=== PATIENT | female | born 1945 | race Asian ===

== ENCOUNTER 2022-02-16 | Inpatient (IN) | payer OTHER, MEDICAID ==
[~2022-02-16] VITALS: Ht 152.4 cm; Wt 49.9 kg
[2022-02-16] VITALS (9 sets, daily range): BP systolic 108–159
--- NOTE | 2022-02-16 00:19 | NUR ---
Patient to ER bed 7 to gown for evaluation. Side rails up. Report given to Saulo MORALEZ.
--- NOTE | 2022-02-16 00:20 | NUR ---
PT BIB DAUGHTER WITH COMPLAINT OF ABDOMINAL PAIN FOR THE PAST DAY. PT HAD LAST BOWEL MOVEMENT THIS MORNING. PT DENIES ANY BLUNT INJURY. PT DENIES ANY BLOOD WITH BOWEL MOVEMENT. VS ARE WITHIN NORMAL LIMITS, PT IS IN BED WITH BED LOWERED LOCKED AND RAILS UP
[2022-02-16] MEDS ORDERED: ONDANSETRON HCL 4 MG/2 ML VIAL IVP ONE ×2 (00:45→03:45)
[2022-02-16] MEDS ORDERED: NACL 0.9% 1,000 ML IV ONE (00:45)
[2022-02-16] MEDS ORDERED: MORPHINE 4 MG INJ. 4 MG/ML VIAL IVP ONE ×2 (00:45→03:30)
[2022-02-16 01:47] LABS: HEMOGLOBIN 10.7 g/dL (12.0-16.0); MEAN CORPUSCULAR HEMOGLOBIN 32 pg (27-31); PLATELET COUNT (AUTO) 233 K/uL (130-430)
[2022-02-16 01:48] LABS: ANION GAP 8 (5-15); CALCIUM 8.7 mg/dL (8.4-11.0); CHLORIDE 94 mmol/L (98-107); CREATININE 0.58 mg/dL (0.55-1.30); GLUCOSE 120 mg/dL (70-99); POTASSIUM 3.6 mmol/L (3.5-5.1); SODIUM SERUM 128 mmol/L (136-145); UREA NITROGEN, BLOOD 12 mg/dL (8-21)
[2022-02-16 01:52] LABS: BASOPHILS % (AUTO) 0.2 % (0.0-2.0); EOSINOPHILS % (AUTO) 0.1 % (0.0-4.0); HEMATOCRIT 30.7 % (36-48); LYMPHOCYTES # (AUTO) 0.7 K/uL (1.0-5.5); LYMPHOCYTES % (AUTO) 6.2 % (20.5-51.5); MEAN CORPUSCULAR HGB CONC 35 % (32-36); MEAN CORPUSCULAR VOLUME 92 fL (79.0-98.0); MONOCYTES # (AUTO) 0.3 K/uL (0.0-1.0); MONOCYTES % (AUTO) 2.9 % (1.7-9.3); NEUTROPHILS # (AUTO) 9.9 K/uL (1.8-7.7); NEUTROPHILS % (AUTO) 90.6 % (40.0-70.0); RED BLOOD CELL COUNT(AUTO) 3.35 MIL/uL (4.2-6.2); RED CELL DISTRIBUTION WIDTH 12.8 % (9.0-15.0)
[2022-02-16 01:55] LABS: ALANINE AMINOTRANSFERASE 21 U/L (12-78); ALBUMIN 3.5 g/dL (3.4-4.8); ASPARTATE AMINOTRANSFERASE 22 U/L (10-37); LIPASE 135 U/L (73-393); TOTAL BILIRUBIN 0.7 mg/dL (0.0-1.0)
[2022-02-16] MEDS ORDERED: cefOXitin SODIUM 2 GM in D5W 100 ML IV ONE (02:15)
--- NOTE | 2022-02-16 02:21 | NUR ---
PT TAKES A DAILY ANTIHYPERTENSIVE MEDICATION BUT DOES NOT KNOW THE NAME
[2022-02-16] MEDS ORDERED: cefOXitin SODIUM 2 GM/VIAL (MEFOXIN) ONE ×2 (02:45→03:52)
[2022-02-16] MEDS ORDERED: MORPHINE 2 MG/ML INJ. SYRINGE IVP PRN (03:00)
[2022-02-16] MEDS ORDERED: cefOXitin SODIUM 1 GM in D5W 50 ML IV SCH (03:00)
[2022-02-16] MEDS ORDERED: ONDANSETRON HCL 4 MG/2 ML VIAL IVP PRN ×2 (03:00→12:15)
--- NOTE | 2022-02-16 03:04 | NUR ---
Patient will be admitted to care of DR. FRANCIS. Admitted to MED SURG unit FOR ACUTE APPENDICITIS.
--- NOTE | 2022-02-16 03:07 | NUR ---
Admit bed requested Patient will be admitted to care of . Admitted to MED SURG unit. Diagnosis ACUTE APPENDICITIS Inpatient (Yes or No) YES Observation (Yes or No) NO Orientation concerns or request close to nursing station (Yes or No) NO Covid Status NEGATIVE On vent or bipap N/A Isolation requirements N/A Needs a sitter N/A From Home (Yes or if No enter name of facility) YES Requires Dialysis (Yes or No) NO Med Rec Completed (Yes of No) YES
--- NOTE | 2022-02-16 04:59 | NUR ---
Patient will be admitted to care of DR FRANCIS. Admitted to unit. Will go to room . Belongings list completed. Complete and up to date summary report printed. SBAR report to GERARDO MORALEZ bedside with opportunity for questions.
--- NOTE | 2022-02-16 05:00 | NUR ---
ADMISSION NOTE Received patient from ER via gurney. Patient admitted with diagnosis of Appendecitis. Patient is awake, alert, oriented X 4. Patient oriented to hospital room, call light, toileting, pain management and safety-teach back done. Patient informed that Fernanda Mcdermott will be her night nurse and that their room number is [id number]. Personal belongings checked and Belongings List documented. Call light within reach. Pt is NPO at this time. Admission completed.
--- NOTE | 2022-02-16 05:30 | NUR ---
Unable to reconcile meds at this time. Daughter Ishaan and the patient does not know what the name of the medication she takes at home. Instructed the daughter to obtain med information and call us and or bring the list so when can inform MD for med to be reconciled.
[2022-02-16] MEDS: KCL 20 mEq in D5/0.45NS 1000mL 1,000 ML IV SCH ×2 (06:20→15:30)
[2022-02-16] MEDS: PANTOPRAZOLE SODIUM 40 MG/VIAL (PROTONIX) IVP SCH (08:27)
[2022-02-16] MEDS ORDERED: BUPIVACAINE LIPOSOME/PF 266 MG/20 ML VIAL INFIL ONE (09:27)
[2022-02-16] MEDS ORDERED: PHENYLEPHRINE HCL 10 MG/ML VIAL (NEOSYNEPHRINE) ONE (10:18)
[2022-02-16] MEDS ORDERED: MIDAZOLAM HCL 2 MG/2 ML VIAL (VERSED) ONE (10:18)
[2022-02-16] MEDS ORDERED: DEXAMETHASONE SOD PHOSPHATE 4 MG/ML VIAL ONE (10:18)
[2022-02-16] MEDS ORDERED: PROPOFOL 200MG/ 20ML VIAL (DIPRIVAN) IV ONE (10:18)
[2022-02-16] MEDS ORDERED: NS 1000 ML IV.SOLN IV ONE (10:18)
[2022-02-16] MEDS ORDERED: ROCURONIUM BROMIDE 10 MG/ML (ZEMURON) ONE (10:18)
[2022-02-16] MEDS ORDERED: HYDROmorphone 2 MG/ML VIAL ONE (10:18)
[2022-02-16] MEDS ORDERED: SEVOFLURANE 15 MIN GAS INH ONE (10:18)
[2022-02-16] MEDS ORDERED: ONDANSETRON HCL 4 MG/2 ML VIAL ONE (10:18)
[2022-02-16] MEDS ORDERED: NS IRRIG SOLN 1000 ML IR ONE (10:18)
[2022-02-16] MEDS ORDERED: SUGAMMADEX SODIUM 200 MG/2 ML VIAL IV ONE (10:18)
--- NOTE | 2022-02-16 10:33 | NUR ---
PATIENT AOX4, APPROPRIATE MOOD, NONDISTRESS. CHILDREN AT BEDSIDE. PATIENT NPO SINCE MN WITH IVFLUIDS MAINTAINED AT ORDERED RATE. RIGHT HAND 20G PATENT. PATIENT LEFT UNIT VIA BED FOR SURGERY. CONSENT/ANESTHESIA DONE. VSS STABLE, AFEBRILE
[2022-02-16] MEDS: cefOXitin SODIUM 1 GM in D5W 50 ML IV SCH ×2 (10:45→17:05)
[2022-02-16] MEDS ORDERED: FLUMAZENIL 0.1 MG/ML IVP PRN (12:15)
[2022-02-16] MEDS ORDERED: MORPHINE 4 MG INJ. 4 MG/ML VIAL IVP PRN ×2 (12:15)
[2022-02-16] MEDS ORDERED: KETOROLAC TROMETHAMINE 30 MG VIAL IVP PRN (12:15)
[2022-02-16] MEDS ORDERED: METOCLOPRAMIDE HCL 10 MG/2 ML VIAL IVP PRN (12:15)
[2022-02-16 12:37] LABS: BILIRUBIN,URINE NEGATIVE (NEGATIVE); BLOOD, URINE NEGATIVE (NEGATIVE); CLARITY/URINE CLEAR (CLEAR); COLOR,URINE YELLOW (YELLOW); GLUCOSE,URINE NEGATIVE (NEGATIVE); KETONES,URINE NEGATIVE (NEGATIVE); LEUKOCYTE ESTERASE ,URINE NEGATIVE (NEGATIVE); NITRITE, URINE NEGATIVE (NEGATIVE); PROTEIN URINE NEGATIVE (NEGATIVE); UROBILINOGEN,URINE 0.2 (0.2-1.0)
--- NOTE | 2022-02-16 12:59 | NUR ---
PATIENT OFF UNIT FOR SURGICAL PROCEDURE. THANK YOU
--- NOTE | 2022-02-16 13:42 | NUR ---
PATIENT BACK FROM SURGERY S/P LAP CONSTANTINO. DENIES ANY PAIN, BEDREST, APPROPRIATE MOOD, NONDISTRESS. ON 2LNC SATS 100%. RIGHT HAND 22G WITH IV FLUIS. ABD WITH 3 SURGICAL DRESSINGS-DRESSING ON MID ABD WITH SMALL AMOUNT OF RED BLOOD. IS GIVEN TO PATIENT FOR LUNG EXERCISES. CLEAR LIQUID DIET. VSS STABLE, AFEBRILE. WILL CONT TO MONITOR PT
--- NOTE | 2022-02-16 16:34 | NUR ---
PATIENT AMBULATED TO RESTROOM WITH STANDBY ASSIST. PATIENT VOIDED AND BURPING. PATIENT NAUSEA/VOMIT WITH SMALL AMOUNT OF CLEAR COLOR EMESIS. PATIENT ASSISTED BACK TO BED. JESUS SCDS APPLIED ON BLE. WILL CONT TO MONITOR PATIENT
--- NOTE | 2022-02-16 18:04 | NUR ---
PATIENT C/O NAUSEA/VOMITTED SMALL AMOUNT OF CLEAR LIQUID DIET. PATIENT REFUSED TO EAT THE REST OF DINNER AT THIS TIME. ANTI EMETIC MEDS GIVEN FOR N/V. IV FLUIDS INFUSING AT ORDERED RATE. WILL CONT TO MONITOR PATIENT
--- NOTE | 2022-02-16 19:15 | NUR ---
OPENING NOTES Patient resting in bed - no s/s pain or distress noted. Respirations even and unlabored - head of bed elevated. IV site patent - no s/ s redness, infection, or infiltration. Bed locked and in lowest position. Call light within reach. 3x surgical lap sites cdi on abdomen.
--- NOTE | 2022-02-16 19:22 | NUR ---
END OF SHIFT REPORT GIVEN TO NAOMY MOTA. THANK YOU
[2022-02-17] VITALS: BP_SYST 94
[2022-02-17] MEDS: cefOXitin SODIUM 1 GM in D5W 50 ML IV SCH ×3 (00:15→11:12)
[2022-02-17] MEDS: KCL 20 mEq in D5/0.45NS 1000mL 1,000 ML IV SCH (00:15)
[2022-02-17 06:37] LABS: BASOPHILS % (AUTO) 0.1 % (0.0-2.0); HEMATOCRIT 29.3 % (36-48); HEMOGLOBIN 10.2 g/dL (12.0-16.0); LYMPHOCYTES # (AUTO) 0.8 K/uL (1.0-5.5); LYMPHOCYTES % (AUTO) 9.6 % (20.5-51.5); MEAN CORPUSCULAR HEMOGLOBIN 32 pg (27-31); MEAN CORPUSCULAR HGB CONC 35 % (32-36); MEAN CORPUSCULAR VOLUME 93 fL (79.0-98.0); MONOCYTES # (AUTO) 0.4 K/uL (0.0-1.0); MONOCYTES % (AUTO) 4.4 % (1.7-9.3); NEUTROPHILS % (AUTO) 85.9 % (40.0-70.0); PLATELET COUNT (AUTO) 202 K/uL (130-430); RED BLOOD CELL COUNT(AUTO) 3.16 MIL/uL (4.2-6.2); RED CELL DISTRIBUTION WIDTH 13.2 % (9.0-15.0); WHITE BLOOD COUNT (AUTO) 8.1 K/uL (4.8-10.8)
[2022-02-17 06:50] LABS: ANION GAP 10 (5-15); CALCIUM 8.5 mg/dL (8.4-11.0); CHLORIDE 100 mmol/L (98-107); CREATININE 0.67 mg/dL (0.55-1.30); GLUCOSE 109 mg/dL (70-99); SODIUM SERUM 134 mmol/L (136-145); UREA NITROGEN, BLOOD 8 mg/dL (8-21)
--- NOTE | 2022-02-17 07:04 | NUR ---
CLOSING NOTES Patient resting in bed - no s/s pain or distress noted. Respirations even and unlabored - head of bed elevated. IV site patent - no s/ s redness, infection, or infiltration. Bed locked and in lowest position. Call light within reach.
--- NOTE | 2022-02-17 07:10 | NUR ---
OPENING NOTE RECEIVED SBAR FROM NIGHT RN. PATIENT IN BED, RESPIRATIONS EVEN NON LABORED, BED IN LOW AND LOCKED POSITION, CALL LIGHT WITHIN REACH. BED ALARM ON
[2022-02-17] MEDS ORDERED: AUG875 PO (07:37)
[2022-02-17] MEDS ORDERED: HYDR-3917 PO (07:38)
[2022-02-17 08:00] VITALS: BP_SYST 132
[2022-02-17] MEDS: PANTOPRAZOLE SODIUM 40 MG/VIAL (PROTONIX) IVP SCH (08:38)
--- NOTE | 2022-02-17 11:46 | NUR ---
EDUCATION EDUCATED PATIENT REGARDING THE NEED FOR A URINE SAMPLE. ANSWERED ALL QUESTIONS, PATIENT VERBALIZED UNDERSTANDING PROVIDED PATIENT WITH STERILE CUP
--- NOTE | 2022-02-17 11:46 | NUR ---
[facility]ONGINGS BROUGHT ALONG WITH PATIENT
[2022-02-17 12:00] VITALS: BP_SYST 127
--- NOTE | 2022-02-17 12:45 | NUR ---
UA COLLECTED, AND TAKEN TO THE LAB
[2022-02-17 13:23] VITALS: BP_SYST 130
[2022-02-17 13:45] LABS: BILIRUBIN,URINE NEGATIVE (NEGATIVE); BLOOD, URINE NEGATIVE (NEGATIVE); CLARITY/URINE CLEAR (CLEAR); COLOR,URINE YELLOW (YELLOW); GLUCOSE,URINE NEGATIVE (NEGATIVE); KETONES,URINE NEGATIVE (NEGATIVE); LEUKOCYTE ESTERASE ,URINE NEGATIVE (NEGATIVE); NITRITE, URINE NEGATIVE (NEGATIVE); PROTEIN URINE NEGATIVE (NEGATIVE); UROBILINOGEN,URINE 0.2 (0.2-1.0)
--- NOTE | 2022-02-17 15:38 | NUR ---
nurse note patient ambulating down hallways, steady gait. denies any pain or discomfort.
[2022-02-17 16:00] VITALS: BP_SYST 130
--- NOTE | 2022-02-17 16:31 | NUR ---
D/C Patient Patient given medication reconciliation form and D/C instructions. Exit Care provided. Patient verbalized understanding. MD discussed with patient the results and treatment provided. Ambulatory with steady gait for discharge to home. Patient in stable condition, ID band removed. IV catheter removed, intact and dressing applied, no active bleeding. Rx of Augmenten and Webster given. Patient educated on pain management. All belongings sent with patient.
== END 2022-02-17 16:30 | disposition home or self-care (01) | DRG 343 ==
LOC: SED → SMU 02:58
PROVIDERS: ADMIT Surgery; ATTEND Surgery
PROC: 0DTJ4ZZ Resection of Appendix, Percutaneous Endoscopic Approach (ICD-10-PCS; principal; 2022-02-16 10:18)
DX: K35.80 Unspecified acute appendicitis (principal); K21.9 Gastro-esophageal reflux disease without esophagitis; I10 Essential (primary) hypertension; Z20.822 Contact with and (suspected) exposure to COVID-19
CPT/HCPCS: 36415; 76376; 80048; 80053; 81003; 83690; 85025; 87040; 87081; 88304; 93005; 99285; C1727; C9113; C9290; J0694; J1100; J1170; J2270; J2370; J2405; J2704; J3465; J3490; J7030; J7060